=== PATIENT | male | born 2005 | race Caucasian/White ===

== ENCOUNTER 2024-03-15 13:20 | Emergency (ER) | payer OTHER ==
[~2024-03-15] VITALS: Ht 170.2 cm; Wt 115.7 kg
[2024-03-15] MEDS ORDERED: HYDR-3980 PO (16:18)
[2024-03-15 16:34] VITALS: BP 128/81; TEMP 98; O2SAT 99
== END 2024-03-15 16:42 | disposition home or self-care (01) ==
LOC: ER 13:20
DX: S30.0XXA Contusion of lower back and pelvis, initial encounter (principal); V89.2XXA Person injured in unspecified motor-vehicle accident, traffic, initial encounter; Y93.89 Activity, other specified; Y92.89 Other specified places as the place of occurrence of the external cause; Y99.8 Other external cause status
CPT/HCPCS: 72100; 72220; A4606; A4663